=== PATIENT | male | born 1940 | race Caucasian/White ===

== ENCOUNTER 2018-06-19 13:05 | Emergency (ER) | payer MEDICARE, OTHER ==
[2018-06-19 14:21] VITALS: BP 136/78
== END 2018-06-19 14:00 | disposition home or self-care (01) ==
LOC: MW.ED 13:05
DX: Z53.21 Procedure and treatment not carried out due to patient leaving prior to being seen by health care provider (principal)
CPT/HCPCS: 99281

== ENCOUNTER 2020-07-25 07:43 | Day surgery (SDC) | payer MEDICARE, OTHER ==
[~2020-07-25 07:43] MED LIST: Lactated Ringers 1,000 ML IV SCH; Lidocaine 2% 5 ML SDV ONE; Propofol 200 MG/20 ML SDV ONE; Sodium Chloride 0.9% 10 ML SDV IV PRN; Sodium Chloride 0.9% 10 ML Syringe FLUSH PRN; Sodium Chloride 0.9% 2.5 ML Syringe FLUSH PRN; fentaNYL 100 MCG/2 ML SDV ONE
--- NOTE | 2020-07-25 08:09 | PCM.PREANE ---
Preanesthetic Assessment - Anesthesia/Transfusion/Family Hx Anesthesia History: Prior Anesthesia Without Reaction Family History of Anesthesia Reaction: No Transfusion History: No Prior Transfusion(s) Intubation History: Unknown - Review of Systems General: No Symptoms Pulmonary: No Symptoms Cardiovascular: No Symptoms Gastrointestinal: Other (anemia, increasing reflux) Neurological: No Symptoms Other: Reports: None - Physical Assessment Height: 5 ft 9 in Weight: 74.389 kg ASA Class: 3 Mental Status: Alert & Oriented x3 Airway Class: Mallampati = 2 Dentition: Reports: Dentures (upper) Thyro-Mental Finger Breadths: 3 Mouth Opening Finger Breadths: 2 ROM/Head Extension: Limited/Partial Lungs: Clear to Auscultation, Normal Respiratory Effort Cardiovascular: Regular Rate, Regular Rhythm - Allergies Allergies/Adverse Reactions: Allergies Allergy/AdvReac Type Severity Reaction Status Date / Time ramipril Allergy Cannot Verified 07/19/20 12:49 Remember - Blood Blood Available: No - Anesthesia Plan Pre-Op Medication Ordered: None - Acknowledgements Anesthesia Type Planned: MAC Pt an Appropriate Candidate for the Planned Anesthesia: Yes Alternatives and Risks of Anesthesia Discussed w Pt/Guardian: Yes Pt/Guardian Understands and Agrees with Anesthesia Plan: Yes PreAnesthesia Questionnaire HEENT History: Reports: Other (See Below) Other HEENT History: wears glasses, has upper denture Cardiovascular History: Reports: High Cholesterol, Hypertension Respiratory History: Reports: None, Other (See Below) (h/o TB) Gastrointestinal History: Reports: Diverticulosis, GERD, Hiatal Hernia, Inflamma tory Bowel Disease, PUD, Other (See Below) (h/o ulcerative colitis) Other Gastrointestinal History: hx of Ulcerative Colitis Genitourinary History: Reports: BPH Musculoskeletal History: Reports: Arthritis, Fracture, Other (See Below) Other Musculoskeletal History: bilateral torn rotator cuffs, hx of fx right hand Neurological History: Reports: Headaches, Chronic Other Neuro History: frequent headaches from sinus congestion Psychiatric History: Reports: Anxiety Endocrine/Metabolic History: Reports: Diabetes, Type II (last A1c 9.1), Hypothyroidism Hematologic History: Reports: None Immunologic History: Reports: None Oncologic (Cancer) History: Reports: None Dermatologic History: - Infectious Disease History Infectious Disease History: Reports: Measles - Past Surgical History Head Surgeries/Procedures: Reports: None HEENT Surgical History: Reports: None Cardiovascular Surgical History: Reports: None Respiratory Surgical History: Reports: None GI Surgical History: Reports: Appendectomy, Colonoscopy, EGD (with dilatation in 80"s), Hernia Repair/Other Other Female Surgeries/Procedures: urethral dilatation Male Surgical History: Reports: TURP-Transurethral Resection of Prostate, Other (See Below) Endocrine Surgical History: Reports: None Neurological Surgical History: Reports: None Musculoskeletal Surgical History: Reports: Arthroscopic Knee, ORIF Other Musculoskeletal Surgeries/Procedures:: right hand Oncologic Surgical History: Reports: None Dermatological Surgical History: - SUBSTANCE USE Tobacco Use Status *Q: Former Tobacco User Tobacco Use Within Last Twelve Months: No Recreational Drug Use History: No - HOME MEDS Home Medications: Home Meds metFORMIN [Glucophage] 1,000 mg PO BID 06/17/14 [History] Levothyroxine [Synthroid] 112 mcg PO DAILY 08/15/14 [History] Mesalamine [Asacol Hd] 400 mg PO TID 08/15/14 [History] PARoxetine HCl [Paroxetine HCl] 30 mg PO DAILY 08/15/14 [History] Simvastatin 20 mg PO BEDTIME 08/15/14 [History] Losartan Potassium 100 mg PO QAM 01/08/16 [History] amLODIPine [Norvasc] 5 mg PO QAM 01/08/16 [History] Chlorthalidone 40 mg PO ACBREAKFAST 10/09/16 [History] Finasteride 5 mg PO DAILY 10/09/16 [History] Pantoprazole [Protonix] 40 mg PO QAM 10/09/16 [History] Aspirin [Adult Aspirin] 1 tab PO DAILY 06/12/18 [History] Ascorbate Calcium [Vitamin C] 500 mg PO DAILY 07/19/20 [History] Linagliptin [Tradjenta] 5 mg PO BEDTIME 07/19/20 [History] Hobgood-3/DHA/Epa/Fish Oil [Hobgood 3 500 Softgel] 1 cap PO DAILY 07/19/20 [History] metFORMIN HCl [Metformin HCl] 1,000 mg PO ACLUNCH 07/19/20 [History] - CURRENT (IN HOUSE) MEDS Current Meds: Current Medications Lactated Ringer's (Ringers, Lactated) 1,000 mls @ 125 mls/hr IV ASDIRECTED EMILY Sodium Chloride (Saline Flush) 10 ml FLUSH ASDIRECTED PRN PRN Reason: Keep Vein Open Sodium Chloride (Saline Flush) 2.5 ml FLUSH ASDIRECTED PRN PRN Reason: Keep Vein Open Sodium Chloride (Saline Flush) 10 ml FLUSH ASDIRECTED PRN PRN Reason: Keep Vein Open Sodium Chloride (Saline Flush) 2.5 ml FLUSH ASDIRECTED PRN PRN Reason: Keep Vein Open Sodium Chloride (Normal Saline) 10 ml IV ASDIRECTED PRN PRN Reason: IV Use Discontinued Medications Fentanyl (Sublimaze) Confirm Administered Dose 100 mcg .ROUTE .STK-MED ONE Stop: 07/25/20 07:31 Lidocaine (Xylocaine-Mpf 2%) Confirm Administered Dose 5 ml .ROUTE .STK-MED ONE Stop: 07/25/20 07:31 Propofol (Diprivan 20 Ml) Confirm Administered Dose 200 mg .ROUTE .STK-MED ONE Stop: 07/25/20 07:31
[2020-07-25] MEDS ORDERED: ePHEDrine 50 MG/ML SDV ONE (09:38)
[2020-07-25] MEDS ORDERED: Propofol 200 MG/20 ML SDV ONE (09:59)
--- NOTE | 2020-07-25 10:20 | PCM.OPNOTE ---
- General Post-Op/Procedure Note Date of Surgery/Procedure: 07/25/20 Operative Procedure(s): Diagnostic EGD and colonoscopy Findings: Pedunculated stomach mass just proximal to the pylorus in the antrum. Diverticulosis, ascending colon polyp, transverse colon polyp, sigmoid colon polyp. Pre Op Diagnosis: Anemia, hiatal hernia, diverticulosis Post-Op Diagnosis: 1) Hiatal hernia. 2) Stomach mass in antrum. 3) Diverticulosis. 4) Ascending colon polyp. 5) Transverse colon polyp. 6) Sigmoid colon polyp Anesthesia Technique: MAC Primary Surgeon: Ana Ayala Condition: Good
--- NOTE | 2020-07-25 10:32 | PCM.POSTAN ---
POST ANESTHESIA ASSESSMENT - MENTAL STATUS Mental Status: Alert, Oriented - VITAL SIGNS Vital Signs: Last Vital Signs Temp 36.5 C 07/25/20 08:22 Pulse 74 07/25/20 10:28 Resp 14 07/25/20 10:28 BP 109/52 L 07/25/20 10:28 Pulse Ox 94 L 07/25/20 10:28 - RESPIRATORY Respiratory Status: Respiratory Rate WNL, Airway Patent, O2 Saturation Stable - CARDIOVASCULAR CV Status: Pulse Rate WNL, Blood Pressure Stable - GASTROINTESTINAL GI Status: No Symptoms - PAIN Pain Score: 0 - POST OP HYDRATION Hydration Status: Adequate & Stable - OBSERVATIONS Free Text/Narrative:: No anesthesia problems
--- NOTE | 2020-07-25 10:49 | PCM48HPAN ---
Post Anesthesia Note - EVALUATION WITHIN 48HRS OF ANESTHETIC Vital Signs in Normal Range: Yes Patient Participated in Evaluation: Yes Respiratory Function Stable: Yes Airway Patent: Yes Cardiovascular Function Stable: Yes Hydration Status Stable: Yes Pain Control Satisfactory: Yes Nausea and Vomiting Control Satisfactory: Yes Mental Status Recovered: Yes Vital Signs: Last Vital Signs Temp 36.5 C 07/25/20 08:22 Pulse 74 07/25/20 10:28 Resp 14 07/25/20 10:28 BP 109/52 L 07/25/20 10:28 Pulse Ox 94 L 07/25/20 10:28 - COMMENTS/OBSERVATIONS Free Text/Narrative:: No anesthesia problems
--- NOTE | 2020-07-25 13:22 | OR ---
SURGEON: ANA AYALA MD DATE OF PROCEDURE: 07/25/2020 PREOPERATIVE DIAGNOSES: Hiatal hernia, diverticulosis, anemia. POSTOPERATIVE DIAGNOSES: 1. Stomach mass. 2. Diverticulosis. 3. Ascending colon polyp. 4. Transverse colon polyp. 5. Sigmoid colon polyp. PROCEDURES PERFORMED: Diagnostic esophagogastroduodenoscopy and colonoscopy. PRIMARY SURGEON: Ana Ayala MD ANESTHESIA: MAC. INSTRUMENT USED: Olympus endoscope and colonoscope. EXTENT OF EXAM: To the second portion of duodenum, to the cecum. PREPARATION: Good. LIMITATIONS: None. INDICATIONS FOR EXAMINATION: The patient is an 80-year-old male who came to me with complaints of persistent heartburn as well as anemia. Preoperative workup revealed that the patient does have a small hiatal hernia associated with mild reflux as well as diverticulosis throughout the colon. The decision was made to proceed with diagnostic EGD and colonoscopy. I explained the procedure, expected perioperative course, and the risks. The patient verbalized understanding and wishes to proceed. PROCEDURE IN DETAIL: The patient was brought into the endoscopy suite and placed in a left lateral decubitus position. A time-out was completed verifying the patient's name, age, date of , allergies, and procedure to be performed. A bite block was placed in the patient's mouth and monitored anesthesia care was induced. Continuous oxygen was provided via nasal cannula throughout the procedure. After adequate sedation was achieved, a well-lubricated endoscope was placed in the patient's mouth and advanced under direct visualization to the second portion of the duodenum. This appeared normal and a photograph was taken. The scope was then fully withdrawn while examining the color, texture, anatomy, and integrity of the mucosa of the upper GI tract. The duodenum appeared normal. The scope was brought into the stomach and a photograph was taken of the pylorus as well as the GE junction. At the level of the pylorus, the patient had a pedunculated irregular appearing polyp. Several photographs of this were taken. Given its irregular appearance, I made the decision to do biopsies to determine its pathology. Several biopsies were taken and sent to pathology, labeled as stomach mass. Biopsies were then taken of the gastric antrum, body, and fundus and sent for histologic review and H. pylori testing. Upon retroflexion of the scope within the stomach, I could see a small hiatal hernia present. The scope was then brought into the esophagus and a photograph was taken of the Z-line. This appeared grossly normal. The mucosa of the distal esophagus did not appear frankly inflamed and there was no evidence of ulceration. A biopsy was taken 1 cm above the Z-line and sent to pathology, labeled as esophagus. The scope was removed and this portion of the procedure terminated. A digital rectal exam was performed. This exam was within normal limits. A well-lubricated colonoscope was inserted in the rectum and advanced under direct visualization to the level of the cecum. Cecum was identified by both visual and anatomic landmarks. A photograph was taken of the cecal cap; however, I was unable to retroflex the scope within the cecum due to looping of the scope more proximally. The scope was then fully withdrawn while examining the color, texture, anatomy, and integrity of the mucosa from the cecum to the anal canal. The patient had three small sessile polyps within the colon; one was in the ascending colon, one in the transverse colon, and one in the very distal sigmoid colon. These were all removed in piecemeal fashion using cold biopsy forceps. The patient was noted to have diverticulosis throughout the sigmoid colon. The scope was then retroflexed within the rectum to allow visualization of the anal canal opening. This appeared normal and a photograph was taken. The scope was then straightened out and fully withdrawn. The cecum to anus time was 17 minutes. The patient tolerated the procedure well and was transferred to the PACU in stable condition. ENDOSCOPIC DIAGNOSES: 1. Stomach mass. 2. Diverticulosis. 3. Ascending colon polyp. 4. Transverse colon polyp. 5. Sigmoid colon polyp. RECOMMENDATIONS: We will follow up on the pathology results from today's exam and visit with the patient regarding the next steps in treatment. We will see him in clinic in 1 to 2 weeks. BRANDIE AUSTIN /[id number]
[2020-07-25 13:31] VITALS: BP 123/58; PULSE 77
== END 2020-07-25 10:50 | disposition home or self-care (01) ==
LOC: MW.SDS 07:43
PROVIDERS: ATTEND Surgery
DX: D12.2 Benign neoplasm of ascending colon (principal); K29.50 Unspecified chronic gastritis without bleeding; K51.40 Inflammatory polyps of colon without complications; D12.5 Benign neoplasm of sigmoid colon; K31.7 Polyp of stomach and duodenum; K25.9 Gastric ulcer, unspecified as acute or chronic, without hemorrhage or perforation; K57.30 Diverticulosis of large intestine without perforation or abscess without bleeding; K56.2 Volvulus; K44.9 Diaphragmatic hernia without obstruction or gangrene; D64.9 Anemia, unspecified; J44.9 Chronic obstructive pulmonary disease, unspecified; I10 Essential (primary) hypertension; E78.00 Pure hypercholesterolemia, unspecified; E11.9 Type 2 diabetes mellitus without complications; Z79.899 Other long term (current) drug therapy; Z88.8 Allergy status to other drugs, medicaments and biological substances; Z98.84 Bariatric surgery status; Z87.891 Personal history of nicotine dependence; Z87.19 Personal history of other diseases of the digestive system
CPT/HCPCS: 43239; 45380; 88305; 88312; J2001; J2704; J3010; J7120; 00813

== ENCOUNTER 2021-05-24 06:55 | Day surgery (SDC) | payer MEDICARE, OTHER ==
[~2021-05-24 06:55] MED LIST changes: -Lidocaine 2% 5 ML SDV ONE; -Propofol 200 MG/20 ML SDV ONE; -fentaNYL 100 MCG/2 ML SDV ONE
[2021-05-24] MEDS ORDERED: Propofol 200 MG/20 ML SDV ONE (07:08)
--- NOTE | 2021-05-24 07:32 | PCM.PREANE ---
Preanesthetic Assessment - Procedure Proposed Procedure: EGD - Anesthesia/Transfusion/Family Hx Anesthesia History: Prior Anesthesia Without Reaction Transfusion History: No Prior Transfusion(s) Intubation History: Unknown - Review of Systems General: No Symptoms Pulmonary: No Symptoms (Quit smoking 40 yrs ago. 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) Cardiovascular: No Symptoms (HTN, HLD) Gastrointestinal: No Symptoms (GERD- well controlled) Neurological: No Symptoms Other: Reports: Diabetes (NIDDM), Thyroid Problems (Hypothyroid), Depression - Physical Assessment NPO Status Date: 05/23/21 NPO Status Time: 18:00 Height: 5 ft 9 in Weight: 77.111 kg ASA Class: 3 Mental Status: Alert & Oriented x3 Airway Class: Mallampati = 3 Dentition: Reports: Dentures (Full upper+), Missing Tooth/Teeth (some missing on bottom) Thyro-Mental Finger Breadths: 3 Mouth Opening Finger Breadths: 3 ROM/Head Extension: Full Lungs: Clear to Auscultation, Normal Respiratory Effort Cardiovascular: Regular Rate, Regular Rhythm - Allergies Allergies/Adverse Reactions: Allergies Allergy/AdvReac Type Severity Reaction Status Date / Time ramipril Allergy Cannot Verified 05/21/21 13:03 Remember - Acknowledgements Anesthesia Type Planned: General Anesthesia Pt an Appropriate Candidate for the Planned Anesthesia: Yes Alternatives and Risks of Anesthesia Discussed w Pt/Guardian: Yes Pt/Guardian Understands and Agrees with Anesthesia Plan: Yes PreAnesthesia Questionnaire HEENT History: Reports: Other (See Below) Other HEENT History: wears glasses, has upper denture Cardiovascular History: Reports: High Cholesterol, Hypertension Respiratory History: Reports: Other (See Below) Other Respiratory History: H&P states COPD, pt denies this but does have prescribed inhalers that he uses as needed for wheezing Gastrointestinal History: Reports: Diverticulosis, GERD, Hiatal Hernia, Inflammatory Bowel Disease, Other (See Below) Other Gastrointestinal History: hx of Ulcerative Colitis Genitourinary History: Reports: BPH Musculoskeletal History: Reports: Arthritis, Fracture, Other (See Below) Other Musculoskeletal History: bilateral torn rotator cuffs, hx of fx little finger-right hand Neurological History: Reports: None Psychiatric History: Reports: Anxiety, Depression Endocrine/Metabolic History: Reports: Diabetes, Type II, Hypothyroidism Hematologic History: Reports: Anemia Immunologic History: Reports: None Oncologic (Cancer) History: Reports: None Dermatologic History: Reports: None - Infectious Disease History Infectious Disease History: Reports: Measles - Past Surgical History Head Surgeries/Procedures: Reports: None HEENT Surgical History: Reports: None Cardiovascular Surgical History: Reports: None Respiratory Surgical History: Reports: None GI Surgical History: Reports: Appendectomy, Colonoscopy, EGD, Hernia, Inguinal Other GI Surgeries/Procedures: hx inguinal hernia repair Other Female Surgeries/Procedures: urethral dilatation Male Surgical History: Reports: TURP-Transurethral Resection of Prostate, Other (See Below) Endocrine Surgical History: Reports: None Neurological Surgical History: Reports: None Musculoskeletal Surgical History: Reports: Arthroscopic Knee, ORIF Other Musculoskeletal Surgeries/Procedures:: tx for fx knuckle on pinky finger- right hand Oncologic Surgical History: Reports: None Dermatological Surgical History: Reports: None - SUBSTANCE USE Tobacco Use Status *Q: Former Tobacco User Tobacco Use Within Last Twelve Months: No Recreational Drug Use History: No - HOME MEDS Home Medications: Home Meds metFORMIN [Glucophage] 1,000 mg PO WITHLUNCH 06/17/14 [History] PARoxetine HCl [Paroxetine HCl] 30 mg PO DAILY 08/15/14 [History] Simvastatin 20 mg PO BEDTIME 08/15/14 [History] Losartan Potassium 100 mg PO QAM 01/08/16 [History] amLODIPine [Norvasc] 5 mg PO DAILY 01/08/16 [History] Finasteride 5 mg PO DAILY 10/09/16 [History] Linagliptin [Tradjenta] 5 mg PO BEDTIME 07/19/20 [History] metFORMIN HCl [Metformin HCl] 2,000 mg PO ASDIRECTED 07/19/20 [History] Albuterol [Ventolin HFA] 1 - 2 puff INH ASDIRECTED PRN 05/21/21 [History] Ascorbate Calcium [Vitamin C] 1 tab PO DAILY 05/21/21 [History] Aspirin [Adult Aspirin Regimen] 81 mg PO DAILY 05/21/21 [History] Calcium Carb, Citrate/Vit D3 [Calcium + D3 ER Tablet] 1 tab PO DAILY 05/21/21 [History] Chlorthalidone 25 mg PO DAILY 05/21/21 [History] Famotidine 20 mg PO Q12H PRN 05/21/21 [History] Fluticasone Propionate [Flovent HFA] 2 puff INH BID PRN 05/21/21 [History] Levothyroxine Sodium [Synthroid] 100 mcg PO DAILY 05/21/21 [History] Mesalamine 2 tab PO WITHDINNER 05/21/21 [History] Omeprazole 40 mg PO DAILY 05/21/21 [History] bisacodyL [Dulcolax] 5 mg PO DAILY PRN 05/21/21 [History] polyethylene glycoL 3350 [Polyethylene Glycol 3350] 1 dose PO DAILY PRN 05/21/21 [History] - CURRENT (IN HOUSE) MEDS Current Meds: Current Medications Lactated Ringer's (Ringers, Lactated) 1,000 mls @ 125 mls/hr IV ASDIRECTED EMILY Sodium Chloride (Sodium Chloride 0.9% 10 Ml Syringe) 10 ml FLUSH ASDIRECTED PRN PRN Reason: Keep Vein Open Sodium Chloride (Sodium Chloride 0.9% 2.5 Ml Syringe) 2.5 ml FLUSH ASDIRECTED PRN PRN Reason: Keep Vein Open Sodium Chloride (Sodium Chloride 0.9% 10 Ml Sdv) 10 ml IV ASDIRECTED PRN PRN Reason: IV Use Discontinued Medications Propofol (Propofol 200 Mg/20 Ml Sdv) Confirm Administered Dose 400 mg .ROUTE .STK-MED ONE Stop: 05/24/21 07:09
[2021-05-24] MEDS ORDERED: fentaNYL 100 MCG/2 ML SDV ONE (08:27)
--- NOTE | 2021-05-24 08:50 | PCM.OPNOTE ---
- General Post-Op/Procedure Note Date of Surgery/Procedure: 05/24/21 Operative Procedure(s): Diagnostic EGD with biopsy Findings: Gastric polyp in antrum. Broad base and friable appearing. No active bleeding. Bleeding after biopsy. Hemostasis achieved without intervention. Pre Op Diagnosis: GI bleed Post-Op Diagnosis: Gastric polyp Anesthesia Technique: General ET Tube Primary Surgeon: Ana Ayala Condition: Good
--- NOTE | 2021-05-24 08:56 | PCM.POSTAN ---
POST ANESTHESIA ASSESSMENT - MENTAL STATUS Mental Status: Alert, Oriented - VITAL SIGNS Vital Signs: Last Vital Signs Temp 97.3 F 05/24/21 07:00 Pulse 81 05/24/21 07:00 Resp 15 05/24/21 07:00 BP 161/77 H 05/24/21 07:00 Pulse Ox 97 05/24/21 07:00 - RESPIRATORY Respiratory Status: Respiratory Rate WNL, Airway Patent - CARDIOVASCULAR CV Status: Pulse Rate WNL, Blood Pressure Stable - GASTROINTESTINAL GI Status: No Symptoms - PAIN Pain Score: 0 - POST OP HYDRATION Hydration Status: Adequate & Stable
--- NOTE | 2021-05-24 08:59 | PCM48HPAN ---
Post Anesthesia Note - EVALUATION WITHIN 48HRS OF ANESTHETIC Vital Signs in Normal Range: Yes Patient Participated in Evaluation: Yes Respiratory Function Stable: Yes Airway Patent: Yes Cardiovascular Function Stable: Yes Hydration Status Stable: Yes Pain Control Satisfactory: Yes Nausea and Vomiting Control Satisfactory: Yes Mental Status Recovered: Yes Vital Signs: Last Vital Signs Temp 97.3 F 05/24/21 07:00 Pulse 81 05/24/21 07:00 Resp 15 05/24/21 07:00 BP 161/77 H 05/24/21 07:00 Pulse Ox 97 05/24/21 07:00 - COMMENTS/OBSERVATIONS Free Text/Narrative:: Pt doing well post-op. VSS. No apparent anesthetic complications. Dr. Charanjit Aguilera
[2021-05-24 09:46] VITALS: BP 135/63; PULSE 67
--- NOTE | 2021-05-25 17:58 | OR ---
SURGEON: ANA AYALA MD DATE OF PROCEDURE: 05/24/2021 PREOPERATIVE DIAGNOSIS: Gastrointestinal bleed. POSTOPERATIVE DIAGNOSIS: Antral polyp. PROCEDURE PERFORMED: Diagnostic esophagogastroduodenoscopy and biopsy. PRIMARY SURGEON: Ana Ayala MD BAIL ATTACHER: Ezequiel Wan MD ANESTHESIA: MAC. INSTRUMENT USED: Olympus endoscope. EXTENT OF EXAM: To the second portion of duodenum. PREPARATION: Good. LIMITATIONS: None. INDICATIONS FOR EXAMINATION: The patient is an 81-year-old male who presented to my clinic with anemia. Last year, he underwent a diagnostic EGD and colonoscopy. At the time, he was found to have a pedunculated hyperplastic polyp in the distal stomach. This had shown some areas of focal erosion. The patient and I had discussed removal, but this was never scheduled. I informed the patient that he could be bleeding from this polyp and that we should perform a diagnostic EGD with possible polypectomy. I explained the procedure, expected perioperative course, and the risks. He verbalized understanding and wishes to proceed. PROCEDURE IN DETAIL: The patient was brought into the OR and left on the cart in supine position. A time-out was completed verifying the patient's name, age, date of , allergies, and procedure to be performed. Given the risk of possible GI bleed, the patient was intubated. A bite block was placed in the patient's mouth. A well-lubricated endoscope was placed in the mouth and advanced under direct visualization to the second portion of duodenum. This appeared normal, and a photograph was taken. The scope was fully withdrawn while examining the color, texture, anatomy, and integrity mucosa of the upper GI tract. The duodenum appeared normal. The scope was brought into the stomach. At the level of the pylorus, the patient was noted again to have a pedunculated polyp. However, at this point in time, it now had a larger base. The area was friable. One small biopsy was taken and there was brisk bleeding from this. The area was monitored, and hemostasis was achieved. Multiple photographs of this were taken. Dr. Ezequiel Wan and I discussed possible resection. However, given our limited resources to control any extra bleeding that may go on with resection, the decision was made to send him to a home teaching grades 7 and 8 teacher in a larger hospital. The scope was retroflexed within the stomach and a photograph taken of the GE junction, which appeared normal. The remainder of the stomach looked normal. The scope was brought into the distal esophagus, and a photograph was taken of a normal-appearing Z-line. The remainder of the esophagus was free of pathology. The scope was removed, and the procedure terminated. The patient tolerated it well and was transferred to the PACU in stable condition. ENDOSCOPIC DIAGNOSIS: Antral polyp. RECOMMENDATIONS: We will refer the patient to a home teaching grades 7 and 8 teacher for resection in the near future. BRANDIE AUSTIN /[id number]
== END 2021-05-24 09:25 | disposition home or self-care (01) ==
LOC: MW.SDS 06:55
PROVIDERS: ATTEND Surgery
DX: K31.7 Polyp of stomach and duodenum (principal); D64.9 Anemia, unspecified; K25.9 Gastric ulcer, unspecified as acute or chronic, without hemorrhage or perforation; J44.9 Chronic obstructive pulmonary disease, unspecified; I10 Essential (primary) hypertension; N40.0 Benign prostatic hyperplasia without lower urinary tract symptoms; E78.00 Pure hypercholesterolemia, unspecified; E03.9 Hypothyroidism, unspecified; E11.9 Type 2 diabetes mellitus without complications; Z88.8 Allergy status to other drugs, medicaments and biological substances; Z79.899 Other long term (current) drug therapy; Z79.84 Long term (current) use of oral hypoglycemic drugs; Z79.890 Hormone replacement therapy; Z87.891 Personal history of nicotine dependence; Z98.890 Other specified postprocedural states
CPT/HCPCS: 43239; 82947; 88305; J0330; J2704; J3010; J7120

== ENCOUNTER 2022-11-01 13:08 | Emergency (ER) | payer MEDICARE, OTHER ==
[2022-11-01 15:08] LABS: CARBON DIOXIDE,CO2 26.6 mmol/L (21.0-32.0); POTASSIUM,K 4.7 mmol/L (3.5-5.1)
[2022-11-01 19:12] VITALS: BP 134/65; PULSE 78
== END 2022-11-01 17:14 | disposition home or self-care (01) ==
LOC: MW.ED 13:08
DX: R42 Dizziness and giddiness (principal); I10 Essential (primary) hypertension; E78.00 Pure hypercholesterolemia, unspecified; F41.9 Anxiety disorder, unspecified; F32.9 Major depressive disorder, single episode, unspecified; E11.9 Type 2 diabetes mellitus without complications; K21.9 Gastro-esophageal reflux disease without esophagitis; M19.90 Unspecified osteoarthritis, unspecified site; Z79.899 Other long term (current) drug therapy; Z88.6 Allergy status to analgesic agent; Z88.8 Allergy status to other drugs, medicaments and biological substances; Z79.82 Long term (current) use of aspirin
CPT/HCPCS: 36415; 80053; 83735; 83880; 85025; 93005; 99285

== ENCOUNTER 2024-06-29 16:18 | Emergency (ER) | payer MEDICARE, OTHER ==
[2024-06-29] MEDS: Lidocaine 1% 10 ML MDV INJECT ONE (18:35)
[2024-06-29] MEDS: Diphtheria,Pertussis(Acell),Tetanus Vaccine 0.5 ML Syringe IM ONE (19:06)
[2024-06-29 19:15] VITALS: BP 154/77; PULSE 85
== END 2024-06-29 19:31 | disposition home or self-care (01) ==
LOC: MW.ED 16:18
DX: S61.215A Laceration without foreign body of left ring finger without damage to nail, initial encounter (principal); Z23 Encounter for immunization; I10 Essential (primary) hypertension; K21.9 Gastro-esophageal reflux disease without esophagitis; E78.00 Pure hypercholesterolemia, unspecified; E11.9 Type 2 diabetes mellitus without complications; Z88.8 Allergy status to other drugs, medicaments and biological substances; Z79.82 Long term (current) use of aspirin; Z79.84 Long term (current) use of oral hypoglycemic drugs; Z79.890 Hormone replacement therapy; Z79.899 Other long term (current) drug therapy; Z90.49 Acquired absence of other specified parts of digestive tract; W26.8XXA Contact with other sharp object(s), not elsewhere classified, initial encounter
CPT/HCPCS: 12002; 90471; 90715; 99282-25; 99283; J3490

== ENCOUNTER 2024-11-16 08:54 | Day surgery (SDC) | payer MEDICARE, OTHER ==
[~2024-11-16 08:54] MED LIST changes: -Lactated Ringers 1,000 ML IV SCH; -Sodium Chloride 0.9% 10 ML SDV IV PRN; +Sodium Chloride 0.9% 20 ML SDV IV PRN
[2024-11-16] MEDS: Lactated Ringers 1,000 ML IV SCH (10:16)
[2024-11-16] MEDS ORDERED: Lidocaine 2% 5 ML SDV ONE (10:42)
[2024-11-16] MEDS ORDERED: propofoL 500 MG/50 ML 50 ML ONE (10:42)
[2024-11-16 12:24] VITALS: PULSE 66
[2024-11-16 13:39] VITALS: BP 108/54
== END 2024-11-16 13:15 | disposition home or self-care (01) ==
LOC: MW.SDS 08:54
PROVIDERS: ATTEND Surgery
DX: Z12.11 Encounter for screening for malignant neoplasm of colon (principal); K29.50 Unspecified chronic gastritis without bleeding; K44.9 Diaphragmatic hernia without obstruction or gangrene; K21.9 Gastro-esophageal reflux disease without esophagitis; R13.10 Dysphagia, unspecified; Z86.0100 Personal history of colon polyps, unspecified; J44.9 Chronic obstructive pulmonary disease, unspecified; I10 Essential (primary) hypertension; E03.9 Hypothyroidism, unspecified; E78.00 Pure hypercholesterolemia, unspecified; E11.9 Type 2 diabetes mellitus without complications; Z79.4 Long term (current) use of insulin; Z79.890 Hormone replacement therapy; Z79.899 Other long term (current) drug therapy
CPT/HCPCS: 43239; 88305; G0104; J2704; J7120; 00813; 99100; J3490